=== PATIENT | female | born 1940 | race African-American/Black ===

== ENCOUNTER 2025-03-04 20:30 | Inpatient (IN) | payer MEDICARE, OTHER ==
[~2025-03-04] VITALS: Ht 165.1 cm; Wt 91.2 kg
[2025-03-04 21:00] VITALS: BP 116/78
[2025-03-04 21:05] LABS: PLATELET COUNT (AUTO) 310 K/uL (179-408); RED BLOOD CELL COUNT(AUTO) 4.49 MIL/uL (3.63-4.92); RED CELL DISTRIBUTION WIDTH 16.0 % (12.3-17.7); WHITE BLOOD COUNT (AUTO) 6.0 K/uL (3.8-11.8)
[2025-03-04 21:06] LABS: *BILIRUBIN,URIN NEGATIVE (NEGATIVE); *BLOOD, URINE NEGATIVE (NEGATIVE); *CLARITY,URINE CLOUDY (CLEAR); *COLOR,URINE YELLOW (YELLOW); *KETONES,URINE NEGATIVE (NEGATIVE); *PROTEIN,URINE NEGATIVE (NEGATIVE); *UROBILINOGEN,URINE 0.2 E.U./dl (NORMAL); LEUKOCYTE ESTERASE ,URINE 3+ (NEGATIVE); NITRITE, URINE NEGATIVE (NEGATIVE); UGLUCOSE NEGATIVE (NEGATIVE)
[2025-03-04 21:14] LABS: CREATININE 0.5 mg/dL (0.6-1.3); SODIUM SERUM 140 mmol/L (136-145); UREA NITROGEN, BLOOD 20 mg/dL (7-18)
[2025-03-04 21:20] LABS: ASPARTATE AMINOTRANSFERASE 27 U/L (15-37); TOTAL PROTEIN, SERUM 7.4 g/dL (6.4-8.2)
[2025-03-04] MEDS ORDERED: DOCU100C36 GT (21:20)
[2025-03-04] MEDS ORDERED: POLY15DR31 LEFTEYE (21:20)
[2025-03-04] MEDS ORDERED: BISA10SU61 RC (21:20)
[2025-03-04] MEDS ORDERED: PANT40TA2 GT (21:20)
[2025-03-04] MEDS ORDERED: INSU100I43 (21:20)
[2025-03-04] MEDS ORDERED: ACET325C7 GT (21:20)
[2025-03-04] MEDS ORDERED: CHLO473M5 PO (21:20)
[2025-03-04] MEDS ORDERED: ZINC56.713 TP (21:20)
[2025-03-04] MEDS ORDERED: CARV12.52 PO (21:20)
[2025-03-04] MEDS ORDERED: MULT-1045 GT (21:20)
[2025-03-04] MEDS ORDERED: NA P133E RC (21:20)
[2025-03-04] MEDS ORDERED: ASCO-375 GT (21:20)
[2025-03-04] MEDS ORDERED: CHOL2000 GT (21:20)
[2025-03-04] MEDS ORDERED: MAGN400O6 GT (21:20)
[2025-03-04] MEDS ORDERED: LACT1TAB12 GT (21:20)
[2025-03-04] MEDS ORDERED: ZINC1CAP3 GT (21:20)
[2025-03-04] MEDS ORDERED: ATOR20TA GT (21:20)
[2025-03-04] MEDS ORDERED: HYDR25TA4 GT (21:20)
[2025-03-04] MEDS ORDERED: COLL30OI TP (21:20)
[2025-03-04] MEDS ORDERED: CRAN450T9 GT (21:20)
[2025-03-04] MEDS ORDERED: CALC-1310 GT (21:20)
[2025-03-04 21:29] LABS: SQUAMOUS EPITHELIAL CELL,UR MODERATE /HPF (NONE SEEN); URINE AMORPHOUS URATE MANY /HPF
[2025-03-04] MEDS ORDERED: METF-494 PO (21:38)
[2025-03-04] MEDS ORDERED: FURO20TA4 GT (21:38)
[2025-03-04] MEDS ORDERED: ONDA4TAB11 PO (21:38)
[2025-03-04] MEDS ORDERED: CLON0.5T4 GT (21:38)
[2025-03-04] MEDS ORDERED: DEXTROSE 50% 50 ML DISP.SYRIN IV PRN (22:15)
[2025-03-04] MEDS ORDERED: CLONAZEPAM 0.5 MG TABLET GT SCH (22:15)
[2025-03-04] MEDS ORDERED: ONDANSETRON 4 MG/2 ML VIAL IV PRN (22:15)
[2025-03-04] MEDS ORDERED: BISACODYL 10 MG SUPP.RECT RC PRN (22:15)
[2025-03-04 23:46] VITALS: BP 111/75; TEMP 97.9; O2SAT 98
[2025-03-05] MEDS: CALCIUM CARBONATE 600 MG TABLET GT SCH (01:18)
[2025-03-05] MEDS: CARVEDILOL 12.5 MG TABLET PO SCH (01:18)
[2025-03-05] MEDS: ATORVASTATIN 20 MG TABLET GT SCH (01:18)
[2025-03-05] MEDS: IV NS 1000 ML 1,000 ML IV PRN (01:19)
[2025-03-05] MEDS ORDERED: CLONAZEPAM 0.5 MG TABLET GT PRN ×2 (06:02→18:45)
[2025-03-05 06:10] VITALS: BP 102/53; TEMP 99.5; O2SAT 99
[2025-03-05] MEDS: BLOOD SUGAR DIAGNOSTIC 1 EACH STRIP VI SCH ×2 (06:31→17:32)
[2025-03-05] MEDS: PANTOPRAZOLE ORAL SUSPENSION 40 MG SUSPDR.PKT GT SCH (06:32)
[2025-03-05 07:04] LABS: PLATELET COUNT (AUTO) 269 K/uL (179-408); RED BLOOD CELL COUNT(AUTO) 4.33 MIL/uL (3.63-4.92); RED CELL DISTRIBUTION WIDTH 15.8 % (12.3-17.7); WHITE BLOOD COUNT (AUTO) 6.4 K/uL (3.8-11.8)
[2025-03-05 07:29] LABS: CREATININE 0.4 mg/dL (0.6-1.3); SODIUM SERUM 139 mmol/L (136-145); UREA NITROGEN, BLOOD 18 mg/dL (7-18)
[2025-03-05 07:33] VITALS: BP 97/62; TEMP 98; O2SAT 96
[2025-03-05] MEDS ORDERED: PANTOPRAZOLE SODIUM 40 MG TABLET.DR PO SCH (09:00)
[2025-03-05] MEDS ORDERED: DOCUSATE SODIUM 100 MG CAPSULE PO SCH (09:00)
[2025-03-05] MEDS: CARVEDILOL 12.5 MG TABLET GT SCH (09:00)
[2025-03-05] MEDS ORDERED: POLYVINYL ALCOHOL OPHT DROPS 15 ML BOTTLE OP ONE (09:00)
[2025-03-05] MEDS: CHLORHEXIDINE GLUCONATE 15 ML MOUTHWASH MM SCH (09:00)
[2025-03-05] MEDS ORDERED: MULTIVITAMINS 5 ML LIQUID UDC GT SCH (09:00)
[2025-03-05] MEDS: HYDROCHLOROTHIAZIDE 25 MG TABLET GT SCH (09:00)
[2025-03-05] MEDS: CHOLECALCIFEROL 1,000 UNIT TABLET GT SCH (09:38)
[2025-03-05] MEDS: ZINC SULFATE 220 MG CAPSULE GT SCH (09:38)
[2025-03-05] MEDS: ASCORBIC ACID 500 MG TABLET GT SCH (09:38)
[2025-03-05] MEDS: DOCUSATE SODIUM 100 MG/10 ML LIQUID UDC GT SCH (09:38)
[2025-03-05] MEDS: FUROSEMIDE 20 MG TABLET GT SCH (09:39)
[2025-03-05] MEDS: MULTIVITAMINS,THERAPEUTIC TABLET GT SCH (09:39)
[2025-03-05] MEDS: CULTURELLE CAPSULE GT SCH (09:40)
[2025-03-05] MEDS: POLYVINYL ALCOHOL OPHT DROPS 15 ML BOTTLE LEFTEYE ONE (09:45)
[2025-03-05 11:34] VITALS: BP 109/61; TEMP 97.8; O2SAT 97
[2025-03-05] MEDS: GLUCERNA 1.2 1000ML LIQUID GT PRN (12:09)
[2025-03-05] MEDS: INSULIN REGULAR, HUMAN 1000 UNIT/10 ML VIAL SQ PRN (12:26)
[2025-03-05] MEDS: MEDIHONEY= THERAHONEY 1.5 OZ TUBE TOP SCH (13:30)
[2025-03-05 15:40] VITALS: BP 102/78; TEMP 98.2; O2SAT 95
[2025-03-05] MEDS ORDERED: DEXTROSE 50% 50 ML DISP.SYRIN IV PRN (16:00)
[2025-03-05] MEDS: ARGININE/GLUTAMINE/CALCIUM BMB 1 EACH POWD.PACK GT SCH (17:37)
[2025-03-05] MEDS ORDERED: METFORMIN XR 500 MG TAB.SR.24H PO SCH ×2 (18:00)
[2025-03-05 19:29] VITALS: BP 112/49; TEMP 98.3; O2SAT 97
[2025-03-05 23:36] VITALS: BP 99/60; TEMP 98.8; O2SAT 93
[2025-03-06] MEDS: INSULIN REGULAR, HUMAN 1000 UNIT/10 ML VIAL SQ PRN (01:22)
[2025-03-06 06:26] VITALS: BP 107/65; TEMP 97.9; O2SAT 96
[2025-03-06 06:42] LABS: PLATELET COUNT (AUTO) 228 K/uL (179-408); RED BLOOD CELL COUNT(AUTO) 4.02 MIL/uL (3.63-4.92); RED CELL DISTRIBUTION WIDTH 15.6 % (12.3-17.7); WHITE BLOOD COUNT (AUTO) 5.2 K/uL (3.8-11.8)
[2025-03-06 06:58] LABS: CREATININE 0.3 mg/dL (0.6-1.3); SODIUM SERUM 141 mmol/L (136-145); UREA NITROGEN, BLOOD 18 mg/dL (7-18)
[2025-03-06 07:34] VITALS: BP 115/72; TEMP 98.3; O2SAT 95
[2025-03-06] MEDS: POTASSIUM CHLORIDE 20 MEQ POWDER PACKET GT ONE (10:28)
[2025-03-06 11:32] VITALS: BP 122/61; TEMP 98.5; O2SAT 95
[2025-03-06 14:27] LABS: BAND % (MANUAL) 4 % (0-10); LYMPHOCYTES % (MANUAL) 25 % (20-40); MONOCYTES % (MANUAL) 17 % (2-10); NEUTROPHILS % (MANUAL) 54 % (42-75); PLATELET ESTIMATE ADEQUATE
[2025-03-06 15:43] VITALS: BP 113/62; TEMP 98.5; O2SAT 94
[2025-03-06 19:00] VITALS: BP 122/68; TEMP 98.5; O2SAT 95
[2025-03-07] VITALS (7 sets, daily range): BP systolic 107–125; BP diastolic 51–84; TEMP 97.6–98.7; O2SAT 95–97
[2025-03-07 06:54] LABS: PLATELET COUNT (AUTO) 204 K/uL (179-408); RED BLOOD CELL COUNT(AUTO) 3.92 MIL/uL (3.63-4.92); RED CELL DISTRIBUTION WIDTH 15.7 % (12.3-17.7); WHITE BLOOD COUNT (AUTO) 4.5 K/uL (3.8-11.8)
[2025-03-07 07:07] LABS: CREATININE 0.3 mg/dL (0.6-1.3); SODIUM SERUM 141 mmol/L (136-145); UREA NITROGEN, BLOOD 19 mg/dL (7-18)
[2025-03-07] MEDS: ACETAMINOPHEN 325 MG TABLET PO PRN (09:14)
[2025-03-07] MEDS: MAGNESIUM OXIDE 400 MG TABLET GT ONE (10:09)
[2025-03-07] MEDS: POTASSIUM CHLORIDE 20 MEQ POWDER PACKET GT ONE (10:09)
[2025-03-08 06:52] LABS: CREATININE 0.3 mg/dL (0.6-1.3); SODIUM SERUM 144 mmol/L (136-145); UREA NITROGEN, BLOOD 14 mg/dL (7-18)
[2025-03-08 07:53] VITALS: BP 131/76; TEMP 98.7; O2SAT 94
[2025-03-08 12:00] VITALS: BP 119/61; TEMP 98.9; O2SAT 95
[2025-03-08 16:07] VITALS: BP 111/68; TEMP 98.6; O2SAT 95
[2025-03-08 19:15] VITALS: BP 115/64; TEMP 99.4; O2SAT 93
[2025-03-09 06:26] VITALS: BP 137/80; TEMP 98.1; O2SAT 90
[2025-03-09 07:50] VITALS: BP 100/80; TEMP 97.1; O2SAT 97
[2025-03-09 16:07] VITALS: BP 127/71; TEMP 97.4; O2SAT 95
[2025-03-09 19:15] VITALS: BP 122/49; TEMP 98.6; O2SAT 98
[2025-03-10 06:06] VITALS: BP 138/77; TEMP 98.1; O2SAT 95
[2025-03-10 11:03] VITALS: BP 152/90; TEMP 98; O2SAT 98
== END 2025-03-10 13:15 | DRG 40 ==
LOC: ER 20:35 → TELE3 22:40 → MEDSURG3 03-08 10:10
PROVIDERS: ADMIT Nurse Practitioner Acute Care; ATTEND Nurse Practitioner Acute Care
PROC: 0JB70ZZ Excision of Back Subcutaneous Tissue and Fascia, Open Approach (ICD-10-PCS; principal; 2025-03-06)
DX: G25.3 Myoclonus (principal); G93.41 Metabolic encephalopathy; L89.154 Pressure ulcer of sacral region, stage 4; R53.2 Functional quadriplegia; Q04.6 Congenital cerebral cysts; E44.0 Moderate protein-calorie malnutrition; Z16.24 Resistance to multiple antibiotics; D68.59 Other primary thrombophilia; N39.0 Urinary tract infection, site not specified; R56.9 Unspecified convulsions; B96.5 Pseudomonas (aeruginosa) (mallei) (pseudomallei) as the cause of diseases classified elsewhere; B96.20 Unspecified Escherichia coli [E. coli] as the cause of diseases classified elsewhere; R13.10 Dysphagia, unspecified; Z90.49 Acquired absence of other specified parts of digestive tract; Z85.3 Personal history of malignant neoplasm of breast; E66.01 Morbid (severe) obesity due to excess calories; Z68.33 Body mass index [BMI] 33.0-33.9, adult; F41.8 Other specified anxiety disorders; E11.9 Type 2 diabetes mellitus without complications; E78.5 Hyperlipidemia, unspecified; I10 Essential (primary) hypertension; K74.60 Unspecified cirrhosis of liver; E88.09 Other disorders of plasma-protein metabolism, not elsewhere classified; Z93.1 Gastrostomy status
CPT/HCPCS: 36415; 70030-TC; 70450; 74230; 83735; 84100; 85025; 87077; 87086; 93005; A4606; A4663; A6209; A6213; G0378; J0696; J1815; J7040